=== PATIENT | female | born 1980 | race African-American/Black ===

== ENCOUNTER 2018-03-14 23:38 | Emergency (ER) | payer MEDICAID ==
[~2018-03-14] VITALS: Ht 170.2 cm; Wt 81.6 kg
[2018-03-14] MEDS ORDERED: NKM (23:52)
[2018-03-15 00:10] VITALS: BP 122/81
[2018-03-15] MEDS ORDERED: DIPHENHYDRAMINE25 M1 ORAL (00:56)
[2018-03-15] MEDS ORDERED: PREDNISONE20 MG ORAL (00:56)
[2018-03-15] MEDS ORDERED: CEPHALEXIN500 MG ORAL (00:56)
[2018-03-15 01:00] VITALS: BP 122/81
--- NOTE | 2018-03-15 05:34 | Emergency Room Report ---
History of Present Illness General Chief Complaint: Skin Rash/Abscess Source: Patient Present Illness HPI 37-year-old female presents ED complaining of rash. Started a few days ago. Noticed on the arms and legs. Also noticed on her buttock. States it is very itchy. Denies pain. 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 Denies fevers or chills. Denies any known food or drug allergies. No other aggravating relieving factors. Denies any other associated symptoms Allergies: Coded Allergies: No Known Allergies (Unverified , 03/14/18) Patient History Past Medical History: none Past Surgical History: balta Pertinent Family History: none Social History: Denies: smoking, alcohol use, drug use Last Menstrual Period: February Now: No Immunizations: UTD Reviewed Nursing Documentation: PMH: Agreed; PSxH: Agreed Nursing Documentation-PMH Hx Gastrointestinal Problems: Yes - CHOLECYSTECTOMY IN 2000 Review of Systems All Other Systems: negative except mentioned in HPI Physical Exam Vital Signs Date Time Temp Pulse Resp B/P (MAP) Pulse Ox O2 Delivery O2 Flow Rate FiO2 03/14/18 23:47 97.8 71 18 125/84 99 Room Air 97.9 Sp02 EP Interpretation: reviewed, normal General Appearance: no apparent distress, alert, GCS 15, non-toxic Head: normocephalic Eyes: bilateral eye normal inspection, bilateral eye PERRL ENT: normal ENT inspection Neck: normal inspection Respiratory: normal inspection Cardiovascular #1: normal inspection Gastrointestinal: normal inspection Rectal: deferred Genitourinary: no CVA tenderness Musculoskeletal: normal inspection Neurologic: alert, oriented x3, responsive, motor strength/tone normal, sensory intact, speech normal Psychiatric: normal inspection Skin: rash - few papules noted to arms, legs. healing one on buttock. nonerythematous base Lymphatic: normal inspection Medical Decision Making Diagnostic Impression: Primary Impression: Rash and other nonspecific skin eruption ER Course Hospital Course 37-year-old female presents to ED with rash Differential diagnoses include: Cellulitis, dermatitis, insect bite, abscess Clinical course Patient placed on stretcher. After initial history, physical exam reveals a young female in no acute distress. On exam there are scattered papules noted to the arms and legs. Healing one on the buttock. Nonerythematous base. Her work started her on permethrin but I do not have high suspicion for scabies. However there is a high incidence of scabies at her work so I encouraged her to continue the medication. We will prescribe steroids, Benadryl , antibiotics. Recommend follow-up with dermatology Diagnosis - rash stable and discharged to home with prescription for keflex, benedryl, prednisone. continue permethrin. Instructed to followup with PMD. Instructed return to ED if symptoms recur or worsen Last Vital Signs Date Time Temp Pulse Resp B/P (MAP) Pulse Ox O2 Delivery O2 Flow Rate FiO2 03/15/18 01:00 97.9 78 18 122/81 99 Room Air 97.9 Status: improved Disposition: HOME, SELF-CARE Condition: Stable Scripts Cephalexin* (KEFLEX*) 500 Mg Capsule 500 MG ORAL EVERY 6 HOURS for 7 Days, CAP Prov: Santiago Varner MD 03/15/18 Diphenhydramine Hcl* (DIPHENHYDRAMINE HCL*) 25 Mg Capsule 25 MG ORAL Q6H PRN for Itching, #30 CAP 0 Refills Prov: Santiago Varner MD 03/15/18 Prednisone* (PREDNISONE*) 20 Mg Tablet 40 MG ORAL DAILY, #10 TAB Prov: Santiago Varner MD 03/15/18 Referrals: [facility],REFERRING (PCP) Patient Instructions: Santiago Barrios MD March 15, 2018 05:34
== END 2018-03-15 01:00 | disposition home or self-care (01) ==
LOC: EMR 23:59
DX: R21 Rash and other nonspecific skin eruption (principal); Z90.49 Acquired absence of other specified parts of digestive tract
CPT/HCPCS: 99284

== ENCOUNTER 2020-06-15 15:25 | Emergency (ER) | payer MEDICAID, OTHER ==
[~2020-06-15] VITALS: Ht 170.2 cm; Wt 87.1 kg
[~2020-06-15 15:25] MED LIST: CEPHALEXIN500 MG ORAL; DIPHENHYDRAMINE25 M1 ORAL; NKM; PREDNISONE20 MG ORAL
[2020-06-15 16:00] VITALS: BP 120/77
[2020-06-15] MEDS ORDERED: Fluconazole 150mg tab ORAL ONE (16:15)
[2020-06-15] MEDS ORDERED: cefTRIAXone 1 GM in NS 55 ML IVPB ONE (16:15)
[2020-06-15] MEDS ORDERED: Bicillin LA 2.4MMU/4ML SYR IM ONE (16:15)
[2020-06-15] MEDS ORDERED: Azithromycin 250mg tab ORAL ONE (16:15)
[2020-06-15 16:25] LABS: BASOPHILS % (AUTO) 1.4 % (0.0-2.0); HEMATOCRIT 39.6 % (37.0-47.0); HEMOGLOBIN 12.9 G/DL (12.0-16.0); LYMPHOCYTES % (AUTO) 39.2 % (20.0-45.0); MEAN CORPUSCULAR VOLUME 85 FL (80-99); MONOCYTES % (AUTO) 5.2 % (1.0-10.0); NEUTROPHILS % (AUTO) 52.2 % (45.0-75.0); PLATELET COUNT 391 K/UL (150-450); RED BLOOD COUNT 4.65 M/UL (4.20-5.40); WHITE BLOOD COUNT 6.2 K/UL (4.8-10.8)
[2020-06-15 16:34] LABS: ANION GAP 8 mmol/L (5-15); BLOOD UREA NITROGEN 11 mg/dL (7-18); CARBON DIOXIDE 25 MMOL/L (21-32); CHLORIDE 106 MMOL/L (98-107); CREATININE 0.9 MG/DL (0.55-1.30); POTASSIUM 3.7 MMOL/L (3.5-5.1); SODIUM 139 MMOL/L (136-145)
[2020-06-15 16:39] LABS: ALANINE AMINOTRANSFERASE 19 U/L (12-78); ALBUMIN 3.9 G/DL (3.4-5.0); ALBUMIN/GLOBULIN RATIO 1.1 (1.0-2.7); ALKALINE PHOSPHATASE 71 U/L (46-116); ASPARTATE AMINO TRANSFERASE 16 U/L (15-37); BILIRUBIN,TOTAL 0.3 MG/DL (0.2-1.0)
[2020-06-15 16:42] LABS: INR 0.9 (0.9-1.1)
[2020-06-15 17:16] LABS: APPEARANCE,URINE SLIGHTLY CLOUDY; BILIRUBIN, URINE NEGATIVE (NEGATIVE); COLOR,URINE PALE YELLOW; GLUCOSE, URINE (UA) NEGATIVE (NEGATIVE); LEUKOCYTE ESTERASE ,URINE NEGATIVE (NEGATIVE); NITRITE,URINE NEGATIVE (NEGATIVE); PH,URINE 7 (4.5-8.0); PROTEIN,URINE 1+ (NEGATIVE); UROBILINOGEN,URINE NORMAL MG/DL (0.0-1.0)
--- NOTE | 2020-06-15 17:26 | Emergency Room Report ---
History of Present Illness General Chief Complaint: Abdominal Pain Source: Patient (Abdulkadir Calle) Present Illness HPI 40-year-old female with no cerebrovascular history here complaining of 4 days of diffuse abdominal pain, urinary frequency urgency, vaginal pruritus, few bouts of nonbloody emesis and feeling nauseated. Reports that she went to [place] this past weekend and symptoms started after. Denies any alcohol intake. Reports that she smokes tobacco however denies other drug use. Denies being . Reports that she is sexually active with multiple partners. Wants to be treated for all possible STDs. Has not taken medication for symptom relief. Denies cough and congestion, loss of taste and smell, URI symptoms, diarrhea. Patient denies any vaginal discharge. (Abdulkadir Calle) Allergies: Coded Allergies: No Known Allergies (Unverified , 03/14/18) COVID-19 Screening Contact w/high risk pt: No Experienced COVID-19 symptoms?: No COVID-19 Testing performed FIELD AUDITOR: No (Abdulkadir Calle) Patient History Past Medical History: see triage record Past Surgical History: none Pertinent Family History: none Last Menstrual Period: 06/15 Now: No Immunizations: UTD Reviewed Nursing Documentation: PMH: Agreed; PSxH: Agreed (Abdulkadir Calle) Nursing Documentation-PMH Past Medical History: No History, Except For Hx Gastrointestinal Problems: Yes - CHOLECYSTECTOMY IN 2000 (Abdulkadir Calle) Review of Systems All Other Systems: negative except mentioned in HPI (Abdulkadir Calle) Physical Exam Vital Signs Date Time Temp Pulse Resp B/P (MAP) Pulse Ox O2 Delivery O2 Flow Rate FiO2 06/15/20 15:43 98.1 77 17 120/77 (91) 98 Room Air Sp02 EP Interpretation: reviewed, normal General Appearance: no apparent distress, alert, GCS 15, non-toxic Head: normocephalic, atraumatic Eyes: bilateral eye normal inspection, bilateral eye PERRL ENT: hearing grossly normal, normal pharynx, no angioedema, normal voice Neck: full range of motion, supple/symm/no masses Respiratory: chest non-tender, lungs clear, normal breath sounds, no rhonchi, no respiratory distress, no retraction, no wheezing, speaking full sentences Cardiovascular #1: regular rate, rhythm, no edema Cardiovascular #2: 2+ carotid (R), 2+ carotid (L), 2+ radial (R), 2+ radial (L) , 2+ dorsalis pedis (R), 2+ dorsalis pedis (L) Gastrointestinal: normal bowel sounds, non tender, soft, no mass, no organomegaly, no peritonitis, no bruit, non-distended, no guarding, no hernia, no pulsatile mass, no rebound Rectal: deferred Genitourinary: no CVA tenderness Musculoskeletal: back normal Neurologic: alert, motor strength/tone normal, oriented x3, sensory intact, responsive, speech normal Psychiatric: judgement/insight normal, memory normal, mood/affect normal, no suicidal/homicidal ideation Skin: no rash Lymphatic: no adenopathy (Abdulkadir Calle) Medical Decision Making PA Attestation All diagnoses and treatment plans were reviewed and discussed with my supervising physician Dr. Camejo (Abdulkadir Calle) Diagnostic Impression: Primary Impression: Nausea & vomiting Additional Impressions: UTI (urinary tract infection) Vaginitis Methamphetamine abuse Cocaine abuse ER Course 40-year-old female with no cerebrovascular history here complaining of 4 days of diffuse abdominal pain, urinary frequency urgency, vaginal pruritus, few bouts of nonbloody emesis and feeling nauseated. Reports that she went to [place] this past weekend and symptoms started after. Denies any alcohol intake. Reports that she smokes tobacco however denies other drug use. Denies being . Reports that she is sexually active with multiple partners. Wants to be treated for all possible STDs. Has not taken medication for symptom relief. Denies cough and congestion, loss of taste and smell, URI symptoms, diarrhea. Patient denies any vaginal discharge. Ddx considered but are not limited to: appendicitis, cholecystis, gastritis, gastroenteritis, UTI, pyelonephritis, SBO, diverticulitis, influenza with GI manifestation, [place], complication with , STD exposure, Vital signs: are WNL, pt. is afebrile H&PE are most consistent with: Nausea vomiting most likely secondary to methamphetamine abuse, THC abuse, cocaine abuse, vaginitis, UTI ORDERS: At this time no CT scan or ultrasound the patient does not complain of any pain at this time., Lipase test, troponin, EtOH level, troponin, Keflex, Zofran ED INTERVENTIONS: NS bolus, Zofran, Pepcid, Rocephin, azithromycin, penicillin G , Diflucan DISCHARGE: At this time pt. is stable for d/c to home. Will provide printed patient care instructions, and any necessary prescriptions. Care plan and follow up instructions have been discussed with the patient prior to discharge. Patient take medication as directed, follow primary care provider, emergency room., Avoid smoking marijuana, using cocaine. Patient reports that someone she was reports that she was alert and awake whole time and laughs when I told her that we found cocaine and methamphetamine in her system and she immediately asks for a note to be excused from work. Patient was advised to return to emergency room worsening symptoms. (Abdulkadir Calle) Laboratory Tests Test 06/15/20 16:05 06/15/20 16:10 White Blood Count 6.2 K/UL (4.8-10.8) Red Blood Count 4.65 M/UL (4.20-5.40) Hemoglobin 12.9 G/DL (12.0-16.0) Hematocrit 39.6 % (37.0-47.0) Mean Corpuscular Volume 85 FL (80-99) Mean Corpuscular Hemoglobin 27.8 PG (27.0-31.0) Mean Corpuscular Hemoglobin Concent 32.6 G/DL (32.0-36.0) Red Cell Distribution Width 15.0 % (11.6-14.8) H Platelet Count 391 K/UL (150-450) Mean Platelet Volume 5.7 FL (6.5-10.1) L Neutrophils (%) (Auto) 52.2 % (45.0-75.0) Lymphocytes (%) (Auto) 39.2 % (20.0-45.0) Monocytes (%) (Auto) 5.2 % (1.0-10.0) Eosinophils (%) (Auto) 2.0 % (0.0-3.0) Basophils (%) (Auto) 1.4 % (0.0-2.0) Prothrombin Time 10.5 SEC (9.30-11.50) Prothrombin Time INR 0.9 (0.9-1.1) Activated Partial Thromboplast Time 27 SEC (23-33) Sodium Level 139 MMOL/L (136-145) Potassium Level 3.7 MMOL/L (3.5-5.1) Chloride Level 106 MMOL/L (98-107) Carbon Dioxide Level 25 MMOL/L (21-32) Anion Gap 8 mmol/L (5-15) Blood Urea Nitrogen 11 mg/dL (7-18) Creatinine 0.9 MG/DL (0.55-1.30) Estimated Glomerular Filtration Rate > 60 mL/min (>60) Glucose Level 93 MG/DL (74-106) Calcium Level 9.0 MG/DL (8.5-10.1) Total Bilirubin 0.3 MG/DL (0.2-1.0) Aspartate Amino Transferase (AST) 16 U/L (15-37) Alanine Aminotransferase (ALT) 19 U/L (12-78) Alkaline Phosphatase 71 U/L (46-116) Troponin I 0.000 ng/mL (0.000-0.056) Total Protein 7.6 G/DL (6.4-8.2) Albumin 3.9 G/DL (3.4-5.0) Globulin 3.7 g/dL Albumin/Globulin Ratio 1.1 (1.0-2.7) Lipase 104 U/L (73-393) Urine Color Pale yellow Urine Appearance Slightly cloudy Urine pH 7 (4.5-8.0) Urine Specific Kane 1.010 (1.005-1.035) Urine Protein 1+ (NEGATIVE) H Urine Glucose (UA) Negative (NEGATIVE) Urine Ketones Negative (NEGATIVE) Urine Blood 5+ (NEGATIVE) H Urine Nitrite Negative (NEGATIVE) Urine Bilirubin Negative (NEGATIVE) Urine Urobilinogen Normal MG/DL (0.0-1.0) Urine Leukocyte Esterase Negative (NEGATIVE) Urine RBC Tntc /HPF (0 - 2) H Urine WBC 10-15 /HPF (0 - 2) H Urine Squamous Epithelial Cells Many /LPF (NONE/OCC) H Urine Bacteria Moderate /HPF (NONE) H Urine Trichomonas Few /HPF (NONE) H Urine HCG, Qualitative Negative (NEGATIVE) Urine Opiates Screen Negative (NEGATIVE) Urine Barbiturates Screen Negative (NEGATIVE) Phencyclidine (PCP) Screen Negative (NEGATIVE) Urine Amphetamines Screen Positive (NEGATIVE) H Urine Benzodiazepines Screen Negative (NEGATIVE) Urine Cocaine Screen Positive (NEGATIVE) H Urine Marijuana (THC) Screen Positive (NEGATIVE) H (Berlin Camejo MD) Last Vital Signs Date Time Temp Pulse Resp B/P (MAP) Pulse Ox O2 Delivery O2 Flow Rate FiO2 06/15/20 15:43 98.1 77 17 120/77 (91) 98 Room Air (Abdulkadir Calle) Disposition: HOME, SELF-CARE Condition: Stable Scripts Ondansetron (Zofran) 4 Mg Tablet 4 MG ORAL Q6H PRN for Nausea & Vomiting, #10 TAB Prov: Abdulkadir Calle 06/15/20 Cephalexin* (KEFLEX*) 500 Mg Capsule 500 MG ORAL EVERY 12 HOURS for 7 Days, #14 CAP 0 Refills Prov: Abdulkadir Calle 06/15/20 Referrals: NON PHYSICIAN (PCP) Patient Instructions: Abdominal Pain, Adult, Urinary Tract Infection, Easy-to- Read, Vaginitis, [id number] Additional Instructions: Take medication as directed, follow-up with your primary care provider, avoid cocaine, marijuana, amphetamine, worsening symptoms return to emergency Abdulkadir Calle Jun 15, 2020 17:26 [place] Camejo MD Jun 16, 2020 05:07
[2020-06-15] MEDS ORDERED: ZOFRAN4 M1 ORAL (17:28)
[2020-06-15] MEDS ORDERED: CEPHALEXIN500 MG ORAL (17:28)
[2020-06-15 17:29] LABS: KETONES,URINE NEGATIVE (NEGATIVE)
[2020-06-15 17:41] VITALS: BP 120/77
[2020-06-18] MEDS ORDERED: BACTRIM DS TAB1 EAC1 ORAL (09:03)
== END 2020-06-15 18:02 | disposition home or self-care (01) ==
LOC: EMR 16:15
DX: R11.2 Nausea with vomiting, unspecified (principal); N39.0 Urinary tract infection, site not specified; N76.0 Acute vaginitis; F15.10 Other stimulant abuse, uncomplicated; F14.10 Cocaine abuse, uncomplicated; Z90.49 Acquired absence of other specified parts of digestive tract
CPT/HCPCS: 36415; 80053; 80307; 81001; 81025; 83690; 84484; 85025; 85610; 85730; 87086; 87181; 96365; 96372; 96375; J0696; J2405; J7030; Q0144; S0028; Z7502; 99284